=== PATIENT | female | born 1975 | race Two or more races ===

== ENCOUNTER 2018-08-05 14:49 | Emergency (ER) | payer SELFPAY ==
[~2018-08-05] VITALS: Ht 154.9 cm; Wt 79.0 kg
[2018-08-05 15:10] VITALS: BP 166/94
[2018-08-05] MEDS ORDERED: FLUCONAZOLE 100MG TABLET PO ONE (17:30)
== END 2018-08-05 17:44 | disposition home or self-care (01) ==
LOC: ER 14:49
DX: N76.0 Acute vaginitis (principal); B96.89 Other specified bacterial agents as the cause of diseases classified elsewhere; M32.9 Systemic lupus erythematosus, unspecified; Z88.3 Allergy status to other anti-infective agents
CPT/HCPCS: 81025; 87210; 99283